=== PATIENT | female | born 1995 | race Hispanic/Latino ===

== ENCOUNTER 2018-07-29 20:17 | Emergency (ER) | payer MEDICAID ==
[2018-07-29] MEDS ORDERED: ACETAMINOPHEN 325 MG TAB ONE (20:24)
== END 2018-07-29 20:54 | disposition home or self-care (01) ==
LOC: EDH 20:17
DX: S93.402A Sprain of unspecified ligament of left ankle, initial encounter (principal); S93.401A Sprain of unspecified ligament of right ankle, initial encounter; K21.9 Gastro-esophageal reflux disease without esophagitis; Z88.1 Allergy status to other antibiotic agents; Z90.49 Acquired absence of other specified parts of digestive tract; Z98.890 Other specified postprocedural states; W17.89XA Other fall from one level to another, initial encounter; Y93.89 Activity, other specified; Y92.89 Other specified places as the place of occurrence of the external cause; Y99.8 Other external cause status
CPT/HCPCS: 73610

== ENCOUNTER 2023-01-10 10:26 | Emergency (ER) | payer MEDICAID ==
[~2023-01-10] VITALS: Ht 152.4 cm; Wt 74.8 kg
[2023-01-10 10:51] VITALS: BP 129/83; PULSE 124; RESP 16; O2SAT 99
[2023-01-10 11:55] LABS: RAPID GROUP A STREP negative (NEGATIVE)
[2023-01-10 12:06] LABS: INFLUENZA TYPE A Negative For Type A (NEGATIVE); INFLUENZA TYPE B Negative For Type B (NEGATIVE)
[2023-01-10 12:27] LABS: SARS-CoV-2, RNA, NAAT NEGATIVE SARS CoV-2 (NEGATIVE)
[2023-01-10] MEDS ORDERED: BENZ-39 PO (12:59)
== END 2023-01-10 13:08 | disposition home or self-care (01) ==
LOC: EDH 10:26
DX: R05.9 Cough, unspecified (principal); R07.89 Other chest pain; M32.9 Systemic lupus erythematosus, unspecified; Z88.1 Allergy status to other antibiotic agents; Z88.2 Allergy status to sulfonamides; Z90.49 Acquired absence of other specified parts of digestive tract; Z20.822 Contact with and (suspected) exposure to COVID-19
CPT/HCPCS: 99284; 71045; 87635; 87880; 87804 ×2; 93005; C9803